=== PATIENT | female | born 1955 | race Caucasian/White ===

== ENCOUNTER 2023-01-02 03:41 | Inpatient (IN) | payer OTHER ==
[2023-01-02 04:44] LABS: #Monocytes 0.6 thou/uL (0.11-0.59); #Neutrophils 2.2 thou/uL (1.40-6.50); %Basophils 0.3 % (0.0-1.0); %Eosinophils 0.6 % (0.0-10.0); %Lymphocytes 14.9 % (21.0-51.0); %Monocytes 17.1 % (0.0-10.0); %Neutrophils 66.8 % (42.0-75.0); Hematocrit 34.1 % (36.0-47.0); Hemoglobin 12.3 g/dL (12.0-16.0); Mean Corpuscular HGB CONC 36.1 g/dL (32.0-36.0); Mean Corpuscular Hemoglobin 31.4 pg (27.0-31.0); Mean Platelet Volume 9.1 fL (7.4-10.4); Platelet Count 103 10x3/uL (130-400); RBC Distribution Width 12.8 % (11.5-14.5); Red Blood Cell (RBC) Count 3.92 mill/uL (4.20-5.40); White Blood Cell (WBC) Count 3.2 10x3/uL (4.8-10.8)
[2023-01-02] MEDS ORDERED: Ketorolac Tromethamine 30 MG/ML VIAL ONE (04:58)
[2023-01-02] MEDS ORDERED: Morphine 4 MG/ML VIAL ONE (04:58)
[2023-01-02 05:07] LABS: ALT (SGPT) 33 U/L (8-55); AST (SGOT) 46 U/L (5-34); Albumin 3.4 g/dL (3.4-4.8); Alkaline Phosphatase 96 U/L (40-110); Anion Gap 12 mmol/L (10-20); BUN (Urea Nitrogen) 7 mg/dL (9.8-20.1); Bilirubin, Total 1.6 mg/dL (0.2-1.2); Calc. Creatinine Clearance 0 mL/min (70-130); Calcium 8.4 mg/dL (7.8-10.44); Carbon Dioxide 23 mmol/L (23-31); Chloride 93 mmol/L (98-107); Estimated GFR 99; Globulin 3.1 g/dL (2.4-3.5); Glucose 88 mg/dL (80-115); Magnesium 1.6 mg/dL (1.6-2.6); Potassium 3.6 mmol/L (3.5-5.1); Protein, Total 6.5 g/dL (5.8-8.1); Sodium 124 mmol/L (136-145)
[2023-01-02] MEDS ORDERED: Ondansetron PF 4 MG/2 ML Vial IVP PRN (05:32)
[2023-01-02 06:49] VITALS: BMI 16.9
[2023-01-02] MEDS ORDERED: Acetaminophen 500 MG TAB ONE (10:52)
[2023-01-02] MEDS: Acetaminophen 500 MG TAB PO PRN (10:53)
[2023-01-02] MEDS ORDERED: Morphine ER 15 MG TAB PO PRN (11:57)
[2023-01-02] MEDS ORDERED: Non-Formulary Item 1 EACH (Hydroxyzine Pamoate [Hydroxyzine Pamoate] 50 MG Capsule) PO PRN (11:57)
[2023-01-02] MEDS ORDERED: CARISOPRODOL 250 MG PO PRN (11:57)
[2023-01-02 12:01] LABS: SARS-CoV-2 NAA Rapid Test Not Detected (NotDetected)
[2023-01-02] MEDS: Morphine ER 15 MG TAB PO PRN ×2 (13:27→21:26)
[2023-01-02] MEDS: Cyclobenzaprine 10 MG TAB PO PRN ×2 (13:28→19:40)
[2023-01-02] MEDS: hydrOXYzine Pamoate 25 mg Capsule PO PRN ×2 (14:22→19:40)
[2023-01-02] MEDS ORDERED: FLU VACC QS2023(65UP)/MF59C/PF 60 MCG/0.5 ML SYRINGE IM ONE (18:00)
[2023-01-02] MEDS: rOPINIRole HCl 0.5 MG TAB PO SCH (19:40)
[2023-01-03] MEDS: Morphine ER 15 MG TAB PO PRN ×2 (03:32→21:47)
[2023-01-03] MEDS: Cyclobenzaprine 10 MG TAB PO PRN ×2 (03:33→21:48)
[2023-01-03 05:24] LABS: #Eosinphils 0.1 thou/uL (0.0-0.7); #Monocytes 0.8 thou/uL (0.11-0.59); #Neutrophils 2.4 thou/uL (1.40-6.50); %Basophils 0.5 % (0.0-1.0); %Eosinophils 2.2 % (0.0-10.0); %Lymphocytes 20.6 % (21.0-51.0); %Monocytes 19.1 % (0.0-10.0); %Neutrophils 57.4 % (42.0-75.0); Hematocrit 33.7 % (36.0-47.0); Hemoglobin 11.9 g/dL (12.0-16.0); Mean Corpuscular HGB CONC 35.3 g/dL (32.0-36.0); Mean Corpuscular Hemoglobin 31.6 pg (27.0-31.0); Mean Corpuscular Volume 89.4 fl (78.0-98.0); Mean Platelet Volume 9.5 fL (7.4-10.4); Platelet Count 112 10x3/uL (130-400); RBC Distribution Width 13.3 % (11.5-14.5); Red Blood Cell (RBC) Count 3.77 mill/uL (4.20-5.40); White Blood Cell (WBC) Count 4.1 10x3/uL (4.8-10.8)
[2023-01-03 05:49] LABS: Anion Gap 12 mmol/L (10-20); BUN (Urea Nitrogen) 9 mg/dL (9.8-20.1); Calc. Creatinine Clearance 62 mL/min (70-130); Calcium 8.4 mg/dL (7.8-10.44); Carbon Dioxide 26 mmol/L (23-31); Chloride 95 mmol/L (98-107); Estimated GFR 96; Glucose 98 mg/dL (80-115); Magnesium 1.3 mg/dL (1.6-2.6); Sodium 129 mmol/L (136-145)
[2023-01-03] MEDS: Levothyroxine Sodium 25 MCG TAB PO SCH (08:59)
[2023-01-03] MEDS: Acetaminophen 500 MG TAB PO PRN ×2 (08:59→17:27)
[2023-01-03] MEDS ORDERED: Magnesium Sulfate In Water 4 GM in Premix 1 BAG IVPB SCH (09:00)
[2023-01-03] MEDS ORDERED: SUMAtriptan Succinate 50 MG TAB PO PRN (11:36)
[2023-01-03] MEDS: rOPINIRole HCl 0.5 MG TAB PO SCH (20:20)
[2023-01-03] MEDS ORDERED: Calcium Carbonate 500 MG ChewTAB PO PRN (21:18)
[2023-01-03] MEDS ORDERED: Electrolyte Replacement Protocol 1 EACH FS SCH (21:30)
[2023-01-04 05:03] LABS: #Monocytes 0.5 thou/uL (0.11-0.59); #Neutrophils 3.3 thou/uL (1.40-6.50); %Basophils 0.2 % (0.0-1.0); %Eosinophils 0.2 % (0.0-10.0); %Lymphocytes 12.7 % (21.0-51.0); %Monocytes 11.1 % (0.0-10.0); %Neutrophils 75.6 % (42.0-75.0); Hematocrit 31.6 % (36.0-47.0); Hemoglobin 11.3 g/dL (12.0-16.0); Mean Corpuscular HGB CONC 35.8 g/dL (32.0-36.0); Mean Corpuscular Hemoglobin 31.7 pg (27.0-31.0); Mean Corpuscular Volume 88.8 fl (78.0-98.0); Mean Platelet Volume 9.6 fL (7.4-10.4); Platelet Count 106 10x3/uL (130-400); RBC Distribution Width 12.9 % (11.5-14.5); Red Blood Cell (RBC) Count 3.56 mill/uL (4.20-5.40); White Blood Cell (WBC) Count 4.3 10x3/uL (4.8-10.8)
[2023-01-04 05:27] LABS: ALT (SGPT) 29 U/L (8-55); AST (SGOT) 44 U/L (5-34); Albumin 2.9 g/dL (3.4-4.8); Alkaline Phosphatase 91 U/L (40-110); Anion Gap 12 mmol/L (10-20); BUN (Urea Nitrogen) 10 mg/dL (9.8-20.1); Calc. Creatinine Clearance 69 mL/min (70-130); Calcium 8.1 mg/dL (7.8-10.44); Carbon Dioxide 25 mmol/L (23-31); Chloride 90 mmol/L (98-107); Estimated GFR 98; Globulin 3.5 g/dL (2.4-3.5); Glucose 81 mg/dL (80-115); Magnesium 1.2 mg/dL (1.6-2.6); Potassium 4.2 mmol/L (3.5-5.1); Protein, Total 6.4 g/dL (5.8-8.1); Sodium 123 mmol/L (136-145)
[2023-01-04] MEDS: Morphine ER 15 MG TAB PO PRN (06:12)
[2023-01-04] MEDS: Acetaminophen 500 MG TAB PO PRN (07:55)
[2023-01-04] MEDS: Levothyroxine Sodium 25 MCG TAB PO SCH (07:55)
[2023-01-04] MEDS ORDERED: Magnesium Sulfate In Water 4 GM in Premix 1 BAG IVPB SCH (08:00)
[2023-01-04 12:02] VITALS: BP 121/68; TEMP 98.6
[2023-01-04] MEDS ORDERED: Sodium Chloride 1 GM TAB PO SCH (15:00)
== END 2023-01-04 14:07 | disposition left against medical advice (07) | DRG 640 ==
LOC: ERS 03:41 → ERHOLD 05:07 → 2SW 13:16 → OBSVTOIN 01-03 11:33
PROVIDERS: ADMIT Internal Medicine; ATTEND Internal Medicine
DX: E87.1 Hypo-osmolality and hyponatremia (principal); E43 Unspecified severe protein-calorie malnutrition; E83.52 Hypercalcemia; R19.7 Diarrhea, unspecified; K74.60 Unspecified cirrhosis of liver; D69.6 Thrombocytopenia, unspecified; R29.6 Repeated falls; E03.9 Hypothyroidism, unspecified; K21.9 Gastro-esophageal reflux disease without esophagitis; G89.29 Other chronic pain; M54.9 Dorsalgia, unspecified; F32.A Depression, unspecified; Z90.710 Acquired absence of both cervix and uterus; Z90.49 Acquired absence of other specified parts of digestive tract; Z96.642 Presence of left artificial hip joint; Z88.1 Allergy status to other antibiotic agents; Z88.2 Allergy status to sulfonamides; G43.909 Migraine, unspecified, not intractable, without status migrainosus; Z11.52 Encounter for screening for COVID-19
CPT/HCPCS: 36415; 70450; 80048; 80053; 83735; 83930; 83935; 84300; 84443; 85025; 87040; 87804; 93005; 96374; 96375; G0378; J1885; J2270; J3475; Q0177; U0002